=== PATIENT | male | born 1965 | race Caucasian/White ===

== ENCOUNTER 2017-08-21 10:43 | Inpatient (IN) | payer OTHER ==
[~2017-08-21] VITALS: Ht 170.2 cm; Wt 188.0 kg
[2017-08-21] MEDS ORDERED: NORVASC5 MG (11:27)
[2017-08-21] MEDS ORDERED: COZAAR100 MG (11:28)
[2017-08-21] MEDS ORDERED: LIPITOR20 MG (11:30)
[2017-09-05] MEDS ORDERED: CLOTRIMAZOLE10 MG MM (12:35)
== END 2017-09-05 14:08 | disposition home health service (06) | DRG 330 ==
LOC: ER 10:43 → SEC-K 08-22 10:07 → MEDJ 08-22 10:07 → O/R 08-30 10:00 → SURH 08-30 13:56 → MEDI 08-30 13:56 → SURH 09-05 14:08
PROVIDERS: Colon & Rectal Surgery
PROC: 3E0336Z Introduction of Nutritional Substance into Peripheral Vein, Percutaneous Approach (ICD-10-PCS; 2017-08-23)
PROC: BW21Y0Z Computerized Tomography (CT Scan) of Abdomen and Pelvis using Other Contrast, Unenhanced and Enhanced (ICD-10-PCS; 2017-08-26)
PROC: 02HV33Z Insertion of Infusion Device into Superior Vena Cava, Percutaneous Approach (ICD-10-PCS; 2017-08-27)
PROC: 0D1B0Z4 Bypass Ileum to Cutaneous, Open Approach (ICD-10-PCS; 2017-08-30)
PROC: 0WBF0ZZ Excision of Abdominal Wall, Open Approach (ICD-10-PCS; 2017-08-30)
PROC: 0DT80ZZ Resection of Small Intestine, Open Approach (ICD-10-PCS; principal; 2017-08-30 09:00)
PROC: 4A12X4Z Monitoring of Cardiac Electrical Activity, External Approach (ICD-10-PCS; 2017-09-04)
DX: K56.690 Other partial intestinal obstruction (principal); N17.8 Other acute kidney failure; C19 Malignant neoplasm of rectosigmoid junction; N13.1 Hydronephrosis with ureteral stricture, not elsewhere classified; C78.4 Secondary malignant neoplasm of small intestine; C79.2 Secondary malignant neoplasm of skin; I10 Essential (primary) hypertension; E78.4 Other hyperlipidemia; R36.0 Urethral discharge without blood; D64.89 Other specified anemias

== ENCOUNTER 2017-10-31 16:45 | Inpatient (IN) | payer OTHER ==
[~2017-10-31] VITALS: Ht 170.2 cm; Wt 80.7 kg
[~2017-10-31 16:45] MED LIST: CHLORTHALIDONE 25 MG; CLOTRIMAZOLE10 MG MM; COZAAR100 MG; LIPITOR20 MG; NORVASC5 MG
[2017-11-03] MEDS ORDERED: PYRIDOXINE HCL100 M1 PO (18:01)
[2017-11-03] MEDS ORDERED: Neurin-Sl Tablet Sl SL (18:01)
== END 2017-11-03 18:08 | disposition home or self-care (01) | DRG 376 ==
LOC: ER 16:45 → MEDI 18:50 → SEC-K 18:50 → MEDI 11-01 03:11
PROC: 30233N1 Transfusion of Nonautologous Red Blood Cells into Peripheral Vein, Percutaneous Approach (ICD-10-PCS; principal; 2017-11-01)
DX: C19 Malignant neoplasm of rectosigmoid junction (principal); D63.0 Anemia in neoplastic disease; I10 Essential (primary) hypertension; E78.4 Other hyperlipidemia

== ENCOUNTER 2017-11-06 06:02 | Day surgery (SDC) | payer OTHER ==
[~2017-11-06 06:02] MED LIST changes: +Neurin-Sl Tablet Sl SL; +PYRIDOXINE HCL100 M1 PO
== END 2017-11-06 11:30 | disposition home or self-care (01) ==
LOC: CIR.AMB 06:02
DX: C19 Malignant neoplasm of rectosigmoid junction (principal)
CPT/HCPCS: 36561; C1751

== ENCOUNTER 2017-11-27 08:57 | Inpatient (IN) | payer OTHER ==
[~2017-11-27] VITALS: Ht 170.2 cm; Wt 79.4 kg
[2017-11-27] MEDS ORDERED: PERCOCET 5-3251 EACH (09:24)
[2017-12-11] MEDS ORDERED: PROTONIX40 MG PO (12:55)
[2017-12-11] MEDS ORDERED: INTEGRA F CAPS1 EACH PO (12:55)
[2017-12-11] MEDS ORDERED: LIDODERM1 EACH TOP (12:55)
[2017-12-11] MEDS ORDERED: NeurRONTin 100mg cap PO (12:55)
[2017-12-11] MEDS ORDERED: SUCRALFATE1 GM/10 ML PO (12:55)
[2017-12-11] MEDS ORDERED: FENTANYL1 EAC3 TD (12:55)
[2017-12-11] MEDS ORDERED: PYRIDOXINE HCL100 M1 PO (12:55)
[2017-12-11] MEDS ORDERED: INTESTINEX680 M1 PO (12:55)
[2017-12-11] MEDS ORDERED: B-12 5,000 MCG1 EACH SL (12:55)
[2017-12-11] MEDS ORDERED: FLUCONAZOLE100 MG PO (12:55)
[2017-12-11] MEDS ORDERED: LEVAQUIN750 MG PO (12:55)
[2017-12-11] MEDS ORDERED: FLAGYL500MG PO (12:55)
== END 2017-12-11 13:25 | disposition home health service (06) | DRG 683 ==
LOC: ER 08:57 → MEDI 11-28 10:45
PROVIDERS: Urology
PROC: BW21Y0Z Computerized Tomography (CT Scan) of Abdomen and Pelvis using Other Contrast, Unenhanced and Enhanced (ICD-10-PCS; 2017-11-29)
PROC: 3E0336Z Introduction of Nutritional Substance into Peripheral Vein, Percutaneous Approach (ICD-10-PCS; 2017-11-30)
PROC: 30233N1 Transfusion of Nonautologous Red Blood Cells into Peripheral Vein, Percutaneous Approach (ICD-10-PCS; 2017-12-01)
PROC: 02HV33Z Insertion of Infusion Device into Superior Vena Cava, Percutaneous Approach (ICD-10-PCS; 2017-12-02)
PROC: BT1FZZZ Fluoroscopy of Left Kidney, Ureter and Bladder (ICD-10-PCS; 2017-12-03)
PROC: 0T9780Z Drainage of Left Ureter with Drainage Device, Via Natural or Artificial Opening Endoscopic (ICD-10-PCS; principal; 2017-12-03 12:15)
PROC: 0T9130Z Drainage of Left Kidney with Drainage Device, Percutaneous Approach (ICD-10-PCS; 2017-12-05)
DX: N17.8 Other acute kidney failure (principal); K56.690 Other partial intestinal obstruction; A09 Infectious gastroenteritis and colitis, unspecified; C19 Malignant neoplasm of rectosigmoid junction; C78.6 Secondary malignant neoplasm of retroperitoneum and peritoneum; N32.1 Vesicointestinal fistula; K92.2 Gastrointestinal hemorrhage, unspecified; E86.0 Dehydration; I10 Essential (primary) hypertension; Z93.2 Ileostomy status; E78.4 Other hyperlipidemia; D63.0 Anemia in neoplastic disease; N13.1 Hydronephrosis with ureteral stricture, not elsewhere classified; R36.0 Urethral discharge without blood

== ENCOUNTER 2017-12-14 09:44 | Inpatient (IN) | payer OTHER ==
[~2017-12-14] VITALS: Ht 167.6 cm; Wt 5.0 kg
[~2017-12-14 09:44] MED LIST changes: +B-12 5,000 MCG1 EACH SL; +FENTANYL1 EAC3 TD; +FLAGYL500MG PO; +FLUCONAZOLE100 MG PO; +INTEGRA F CAPS1 EACH PO; +INTESTINEX680 M1 PO; +LEVAQUIN750 MG PO; +LIDODERM1 EACH TOP; +NeurRONTin 100mg cap PO; +PERCOCET 5-3251 EACH; +PROTONIX40 MG PO; +SUCRALFATE1 GM/10 ML PO
[2017-12-24] MEDS ORDERED: FLUCONAZOLE100 MG PO (11:13)
[2017-12-24] MEDS ORDERED: LEVAQUIN750 MG PO (11:14)
[2017-12-24] MEDS ORDERED: METRONIDAZOLE250 MG PO (11:15)
[2017-12-24] MEDS ORDERED: PROTONIX40 MG PO (11:16)
[2017-12-24] MEDS ORDERED: PYRIDOXINE HCL100 M1 PO (11:16)
[2017-12-24] MEDS ORDERED: FENTANYL1 EAC3 TD (11:16)
[2017-12-24] MEDS ORDERED: INTESTINEX680 M1 PO (11:16)
[2017-12-24] MEDS ORDERED: INTEGRA F CAPS1 EACH PO (11:16)
[2017-12-24] MEDS ORDERED: B-12 5,000 MCG1 EACH SL (11:16)
[2017-12-24] MEDS ORDERED: LIDODERM1 EACH TOP (11:16)
[2017-12-24] MEDS ORDERED: NeurRONTin 100mg cap PO (11:16)
[2017-12-24] MEDS ORDERED: SUCRALFATE1 GM/10 ML PO (11:16)
[2017-12-24] MEDS ORDERED: POLY119PG PO (11:36)
[2017-12-24] MEDS ORDERED: ZOFRAN4 MG PO (11:36)
== END 2017-12-24 12:32 | disposition home or self-care (01) | DRG 683 ==
LOC: ER 09:44 → SURH 21:07
PROC: BW21Y0Z Computerized Tomography (CT Scan) of Abdomen and Pelvis using Other Contrast, Unenhanced and Enhanced (ICD-10-PCS; principal; 2017-12-17)
PROC: 05H333Z Insertion of Infusion Device into Right Innominate Vein, Percutaneous Approach (ICD-10-PCS; 2017-12-17)
PROC: 3E0436Z Introduction of Nutritional Substance into Central Vein, Percutaneous Approach (ICD-10-PCS; 2017-12-17)
DX: N17.8 Other acute kidney failure (principal); K94.13 Enterostomy malfunction; C19 Malignant neoplasm of rectosigmoid junction; C78.6 Secondary malignant neoplasm of retroperitoneum and peritoneum; K56.690 Other partial intestinal obstruction; N32.1 Vesicointestinal fistula; I12.9 Hypertensive chronic kidney disease with stage 1 through stage 4 chronic kidney disease, or unspecified chronic kidney disease; N18.1 Chronic kidney disease, stage 1; Y83.8 Other surgical procedures as the cause of abnormal reaction of the patient, or of later complication, without mention of misadventure at the time of the procedure; Y92.098 Other place in other non-institutional residence as the place of occurrence of the external cause; E86.0 Dehydration; E78.4 Other hyperlipidemia; D63.0 Anemia in neoplastic disease

== ENCOUNTER 2018-01-11 14:10 | Inpatient (IN) | payer OTHER ==
[~2018-01-11] VITALS: Ht 170.2 cm; Wt 49.9 kg
[~2018-01-11 14:10] MED LIST changes: +METRONIDAZOLE250 MG PO; +POLY119PG PO; +ZOFRAN4 MG PO
== END 2018-02-01 16:30 | disposition home health service (06) | DRG 871 ==
LOC: ER 14:10 → MEDJ 16:42
PROC: 4A033R1 Measurement of Arterial Saturation, Peripheral, Percutaneous Approach (ICD-10-PCS; 2018-01-11)
PROC: 8E0ZXY6 Isolation (ICD-10-PCS; 2018-01-11)
PROC: 3E0336Z Introduction of Nutritional Substance into Peripheral Vein, Percutaneous Approach (ICD-10-PCS; 2018-01-11)
PROC: 02HV33Z Insertion of Infusion Device into Superior Vena Cava, Percutaneous Approach (ICD-10-PCS; 2018-01-13)
PROC: BT43ZZZ Ultrasonography of Bilateral Kidneys (ICD-10-PCS; 2018-01-16)
PROC: 30233N1 Transfusion of Nonautologous Red Blood Cells into Peripheral Vein, Percutaneous Approach (ICD-10-PCS; 2018-01-16)
PROC: 0T9030Z Drainage of Right Kidney with Drainage Device, Percutaneous Approach (ICD-10-PCS; principal; 2018-01-18)
DX: A41.9 Sepsis, unspecified organism (principal); R65.21 Severe sepsis with septic shock; D65 Disseminated intravascular coagulation [defibrination syndrome]; N17.8 Other acute kidney failure; K56.690 Other partial intestinal obstruction; C78.6 Secondary malignant neoplasm of retroperitoneum and peritoneum; N39.0 Urinary tract infection, site not specified; C19 Malignant neoplasm of rectosigmoid junction; N32.1 Vesicointestinal fistula; N13.1 Hydronephrosis with ureteral stricture, not elsewhere classified; D62 Acute posthemorrhagic anemia; Z66 Do not resuscitate; E86.0 Dehydration; Z93.2 Ileostomy status; B96.29 Other Escherichia coli [E. coli] as the cause of diseases classified elsewhere; Z16.12 Extended spectrum beta lactamase (ESBL) resistance; I10 Essential (primary) hypertension; E78.4 Other hyperlipidemia; B96.5 Pseudomonas (aeruginosa) (mallei) (pseudomallei) as the cause of diseases classified elsewhere; R31.0 Gross hematuria; D63.0 Anemia in neoplastic disease